=== PATIENT | male | born 1990 | race Caucasian/White ===

== ENCOUNTER 2016-10-22 20:19 | Emergency (ER) | payer OTHER ==
[~2016-10-22] VITALS: Ht 170.2 cm; Wt 71.8 kg
[2016-10-22 20:28] VITALS: BP 138/96; RESP 16; O2SAT 98
--- NOTE | 2016-10-22 20:33 | ED.REPORT ---
HPI-Ear Pain/Problem/FB Date of Service Oct 22, 2016 ED Provider: Riky Olsen MD Patient is a 26 year old male who presents to the ED complaining of a right ear ache onset this morning. Associated symptoms include congestion and headache. He denies fever. Patient reports that he normally gets at least two ear infections a year and his pain feels similar to previous ear infections. Nursing Notes Stated Complaint: RIGHT EAR ACHE Chief Complaint: ENT & Mouth Nursing Notes Reviewed: Yes Allergies: Coded Allergies: No Known Allergies (Unverified Allergy, Unknown, 10/22/16) General Time Seen by MD: 20:32 Chief Complaint Ear problem right Hx Obtained From: Patient Arrived By: Walk-in Onset Occurred: 5 - 8 hours ago Symptom Duration: Since onset Recent Healthcare: No recent doctor visit, No recent hospitalization Similar Sx Previous: Yes Past Medical History Past Medical History none reported Smoking History Current Every Day Smoker Social History Drug Use: IV drugs, Meth Ambulatory Status Independent Review of Systems Constitutional: Denies: Chills, Fever Ears / Nose / Throat: Reports: Earache right, Nasal congestion Complete sys rev & neg: except as marked. Additional Review of Systems Respiratory: Denies: Non-productive cough, Shortness of breath Skin: Denies Itching, Denies Rash Neurologic: Reports: Headache Physical Exam Initial Vital Signs Vital Signs (First) Date Time Temp Pulse Resp B/P Pulse Ox O2 Delivery O2 Flow Rate FiO2 10/22/16 20:28 36.5 101 16 138/96 98 Room Air Initial VS: Reviewed General/Constitutional: Awake, Alert, No acute distress ENT: Atraumatic, Airway patent, Mucous membranes moist Right Ear / Mastoid: Positive: Tympanic membrane red no fluid level behind TM left TM normal Head / Eyes: Atraumatic, Normocephalic, PERRL, EOMI Respiratory / Chest: Atraumatic, Breath sounds NL, Breath sounds = bilat, No respiratory distress Cardiovascular: Heart rate NL, Regular rhythm, Heart sounds NL, No gallop, No murmurs, No rubs Skin: Atraumatic, Color NL, No rash, Warm, Dry Neurologic: Oriented X3, Speech NL, No motor deficits, No sensory deficits Abdomen: Atraumatic, Soft, Non-tender Psychiatric: Affect NL, Mood NL Re-Eval/Medical Decision Med Decision/Clinical Course Patient is a 26 year old male who presents to the ED complaining of a right ear ache onset this morning. Associated symptoms include congestion and headache. He denies fever. Patient reports that he normally gets at least two ear infections a year and his pain feels similar to previous ear infections. The emergency department the patient is afebrile stable vital signs and examination as above. Overall presentation is consistent with otitis media. I have prescribed a course of oral amoxicillin. At this time, he is well appearing and I do not feel that further workup is indicated. Tympanic membrane is intact. No evidence of malignant otitis externa, mastoiditis or other concerning process. Prior to discharge follow-up and return precautions were reviewed in detail with the patient who verbalized understanding and agreement with the plan. The patient was discharged in stable condition. Re-Evaluation/Progress : Time of Eval: 21:41 Re-Evaluation/Progress Note: Discussed plan for treatment and dischage. Patient understands and agrees to plan. All questions were addressed. Counseled Regarding: Diagnosis, Need for follow-up, When/why to return to ED Discharge & Departure Primary Impression: Otitis media Otitis media type: unspecified Laterality: right Chronicity: unspecified Qualified Code: H66.91 - Otitis media, unspecified, right ear Additional Impression: Ear pain, right Disposition: Home Discharge Condition All VS Reviewed: Yes Condition: Stable Patient Instructions: Otitis Media (ED) Additional Instructions: Thank you for seeking care at the emergency room. It appears that you have an ear infection Our primary goal today in the ED was to evaluate you for any life-threatening conditions. Your evaluation was reassuring. You will be discharged with a prescription for Amoxicillin. Take the antibiotic as directed. You can follow up with the residency clinic to establish a primary care doctor. You should return to the ED immediately if you develop fers, vomiting, cough, or any other concerning signs or symptoms. Thank you for letting us partake in your care today. Referrals: [facility] Jose Raul Attestation Portions of this note were transcribed by Helene Lawson. I, Dr. Olsen personally performed the history, physical exam and medical decision-making; I reviewed and confirmed the accuracy of the information in the transcribed note. Signed by: Jose Raul Hope, 10/22/16 and 2140 copies to: [facility] Riky Olsen MD Oct 22, 2016 20:33 Joy Lawson Oct 22, 2016 21:45
[2016-10-22] MEDS ORDERED: _Amoxicillin 500 mg Capsule PO SCH (21:55)
== END 2016-10-22 22:20 | disposition home or self-care (01) ==
LOC: SED 20:19
DX: H66.91 Otitis media, unspecified, right ear (principal); R51 Headache; F17.200 Nicotine dependence, unspecified, uncomplicated